=== PATIENT | male | born 1975 | race Two or more races ===

== ENCOUNTER 2017-02-09 21:41 | Emergency (ER) | payer BC ==
[~2017-02-09 21:41] MED LIST: ACETAMINOPHEN PO; ERYTHROMYCIN OINT OU; FLEXERIL10 MG PO; IBUPROFEN800 MG PO; KETOPROFEN PO; NO MEDICATIONS; PHENERGAN PO; VICODIN 5/500 T1 TAB PO
== END 2017-02-09 23:05 | disposition home or self-care (01) ==
LOC: CFTX 21:41
DX: R51 Headache (principal); H10.31 Unspecified acute conjunctivitis, right eye; F17.210 Nicotine dependence, cigarettes, uncomplicated; Z98.890 Other specified postprocedural states; E05.00 Thyrotoxicosis with diffuse goiter without thyrotoxic crisis or storm
CPT/HCPCS: 96361; 96374; 96375; 99285; J1200; J1885; J2765

== ENCOUNTER 2017-03-06 17:19 | Emergency (ER) | payer BC ==
--- NOTE | ~2017-03-06 | EKG ---
PATIENT: AISLINN GATICA UNIT #: [id number] Ventricular Rate: 64 BPM Atrial Rate: 64 BPM P-R Interval: 152 ms QRS Duration: 94 ms Q-T Interval: 396 ms QTC Calculation(Bezet): 408 ms P [place]: 38 degrees Calculated R [place]: 59 degrees Calculated T [place]: 48 degrees Diagnosis Line: Normal sinus rhythm Diagnosis Line: Normal ECG Diagnosis Line: When compared with ECG of 14-SEP-2015 18:18, Diagnosis Line: No significant change was found Diagnosis Line: Confirmed by YOEL RETANA MD ([id number]) on 03/07/2017 Diagnosis Line: 10:39:07 AM INTERPRETING MD: LAINEY MAZARIEGOS
[2017-03-06 18:07] LABS: BASOPHIL% 0.4 % (0-2.5); EOSINOPHIL# 0.3 X10e3 (0-0.7); HEMATOCRIT 43.2 % (38.0-50.0); HEMOGLOBIN 14.3 gm/dL (13.0-16.0); LYMPHOCYTE# 2.4 X10e3 (1.0-3.5); LYMPHOCYTE% 21.8 % (17.0-45.0); MEAN CELL VOLUME 84.4 FL (83-96); MEAN CORPUSCULAR HEMOGLOBIN 27.9 PG (28-34); MEAN CORPUSCULAR HGB CONC 33.1 g/dL (30-36); MEAN PLATELET VOLUME 9.2 FL (6.5-11.5); MONOCYTE# 0.6 X10e3 (0-1.0); MONOCYTE% 5.1 % (3.0-12.0); NEUTROPHIL# 7.6 X10e3 (1.5-7.1); NEUTROPHIL% 69.7 % (40-75); PLATELET COUNT 180 X10e3 (140-420); RED BLOOD COUNT 5.12 X10e (3.90-5.60); WHITE BLOOD COUNT 10.9 X10e3 (4.0-10.5)
[2017-03-06 18:09] LABS: DIFF IND NO
[2017-03-06 18:38] LABS: ALBUMIN SERUM 4.1 g/dL (3.5-5.0); ALKALINE PHOSPHATASE 53 U/L (32-92); ALT (SGPT) 16 U/L (10-40); AST (SGOT) 14 U/L (10-42); BILIRUBIN,TOTAL 0.6 mg/dL (0.2-2.0); BLOOD UREA NITROGEN 23 mg/dL (9-23); BUN/CREATININE RATIO 25.55; CALCIUM SERUM 9.1 mg/dL (8.4-10.2); CARBON DIOXIDE 26 mmol/L (22-31); CHLORIDE 108 mmol/L (100-111); CREATININE SERUM 0.9 mg/dL (0.6-1.4); GLUCOSE FASTING 133 mg/dL (70-110); POTASSIUM 3.6 mmol/L (3.5-5.1); PROTEIN TOTAL SERUM 6.9 g/dL (6.0-8.3); SODIUM 140 mmol/L (135-145)
[2017-03-06 18:40] LABS: BILIRUBIN, DIRECT <0.1 mg/dL (0.0-0.2); BILIRUBIN,INDIRECT 0.5 mg/dL (0.0-0.9)
[2017-03-06 21:06] LABS: POC - CKMB <1.0 ng/mL (0.0-7.9); POC - TROPONIN <0.05 ng/mL (<=0.05)
== END 2017-03-06 22:10 | disposition home or self-care (01) ==
LOC: CED 17:19
PROVIDERS: Emergency Medicine
DX: M79.1 Myalgia (principal)
CPT/HCPCS: 36415; 80048; 80076; 82550; 82553; 82947; 84443; 84484; 85025; 93005; 96372; 99283; J1885